=== PATIENT | female | born 2000 | race African-American/Black ===

== ENCOUNTER 2020-06-09 11:48 | Emergency (ER) | payer OTHER | END 2020-06-09 14:00 | disposition home or self-care (01) | LOC: ER1 11:48 | DX: R07.9 Chest pain, unspecified (principal); F17.200 Nicotine dependence, unspecified, uncomplicated; Z53.20 Procedure and treatment not carried out because of patient's decision for unspecified reasons | CPT/HCPCS: 93005; 99284 ==

== ENCOUNTER 2020-09-29 18:58 | Emergency (ER) | payer OTHER ==
[2020-09-29] MEDS ORDERED: NORFLEX 100 MG100 MG PO (19:33)
[2020-09-29] MEDS ORDERED: MEDROL DOSEPAK 24 MG PO (19:33)
[2020-09-29] MEDS ORDERED: Voltaren Gel 1 % TOP (19:33)
== END 2020-09-29 20:09 | disposition home or self-care (01) ==
LOC: ER1 18:58
DX: S29.012A Strain of muscle and tendon of back wall of thorax, initial encounter (principal); F17.210 Nicotine dependence, cigarettes, uncomplicated; W19.XXXA Unspecified fall, initial encounter
CPT/HCPCS: 96372; 99283; J1100; J1885

== ENCOUNTER 2020-10-08 15:46 | Emergency (ER) | payer OTHER ==
[~2020-10-08 15:46] MED LIST: MEDROL DOSEPAK 24 MG PO; NORFLEX 100 MG100 MG PO; Voltaren Gel 1 % TOP
[2020-10-08] MEDS ORDERED: KEFLEX CAP 250250 MG PO (17:04)
[2020-10-08] MEDS ORDERED: IBUPROFEN600 MG PO (17:04)
== END 2020-10-08 17:28 | disposition home or self-care (01) ==
LOC: ER1 15:46
DX: L02.416 Cutaneous abscess of left lower limb (principal); F17.210 Nicotine dependence, cigarettes, uncomplicated
CPT/HCPCS: 10060; 99283

== ENCOUNTER → 2020-10-25 | Outpatient (CLI) | payer OTHER ==
[~2020-10-25] MED LIST changes: +IBUPROFEN600 MG PO; +KEFLEX CAP 250250 MG PO
== END ==
LOC: RAD 13:37
DX: J40 Bronchitis, not specified as acute or chronic (principal)
CPT/HCPCS: 71046

== ENCOUNTER 2021-04-29 12:27 | Emergency (ER) | payer OTHER | END 2021-04-29 16:50 | disposition home or self-care (01) | LOC: ER1 12:27 | DX: B34.9 Viral infection, unspecified (principal); F17.200 Nicotine dependence, unspecified, uncomplicated; Z20.822 Contact with and (suspected) exposure to COVID-19 | CPT/HCPCS: 0240U; 87081; 87880; 99283 ==

== ENCOUNTER 2021-07-07 14:24 | Emergency (ER) | payer OTHER ==
[2021-07-07 16:32] LABS: BUN/CREATININE RATIO 16 (0-10)
[2021-07-07 17:58] LABS: HEMOGLOBIN 13.1 gm/dl (12.3-15.3); RED BLOOD COUNT 4.36 M/UL (4.00-5.10); WHITE BLOOD COUNT 6.9 K/UL (4.5-11.0)
[2021-07-12 00:54] LABS: ACINETOBACTER BAUMANNII Not Detected (Negative); CANDIDA ALBICANS Not Detected (Negative); CANDIDA KRUSEI Not Detected (Negative); CANDIDA TROPICALIS Not Detected (Negative); ENTEROCOCCUS Not Detected (Negative); ESCHERICHIA COLI Not Detected (Negative); HAEMOPHILUS INFLUENZAE Not Detected (Negative); KLEBSIELLA OXYTOCA Not Detected (Negative); KLEBSIELLA PNEUMONIAE Not Detected (Negative); KPC-CARBAPENEM-RESISTANCE GENE Not Detected (Negative); PROTEUS Not Detected (Negative); PSEUDOMONAS AERUGINOSA Not Detected (Negative); SERRATIA MARCESANS Not Detected (Negative); STAPHYLOCOCCUS Not Detected (Negative); STAPHYLOCOCCUS AUREUS Not Detected (Negative); STREP AGALACTIAE (GROUP B) Not Detected (Negative); STREP PYOGENES (GROUP A) Not Detected (Negative); STREPTOCOCCUS Not Detected (Negative); mecA (METHICILLIN RESIST GENE Not Detected (Negative); vanA/B (VANCOMYCIN RESIST GENE Not Detected (Negative)
== END 2021-07-07 17:25 | disposition home or self-care (01) ==
LOC: ER1 14:24
PROVIDERS: Emergency Medicine
DX: U07.1 COVID-19 (principal)
CPT/HCPCS: 0240U; 71045; 80053; 81001; 83605; 85025; 87040; 87086; 96374; 96375; 99284; J1885